=== PATIENT | male | born 1980 | race African-American/Black ===

== ENCOUNTER 2018-03-22 16:03 | Emergency (ER) | payer OTHER ==
[~2018-03-22] VITALS: Ht 172.7 cm; Wt 83.9 kg
[2018-03-22 16:27] VITALS: BP 138/84
--- NOTE | 2018-03-22 17:04 | PHYS DOC ---
Past Medical History Past Medical History: Other Additional Past Medical Histor: CHRONIC BACK PAIN Past Surgical History: No Surgical History Additional Information: Cigar daily. Alcohol Use: None Drug Use: Marijuana Adult General Chief Complaint Chief Complaint: BACK PAIN OR INJURY HPI HPI 37-year-old male presents to ER with complaints of lower back pain which started on Tuesday. Patient reports he went to step up on a step when he had sudden onset of lower back pain radiating into his right lower extremity. Patient denies any injury. Patient denies any fall. Patient states pain has been ongoing since and has been gradually worsening. Patient denies any incontinence of bowel or bladder, saddle anesthesia, or change in bowel pattern. Patient denies swelling in extremities. Patient states he has been taking ibuprofen and tramadol with minimal relief. Patient denies numbness or tingling. Patient reports he has been able to walk but does have increased pain. Patient denies any previous back surgery or injuries. Review of Systems Review of Systems Constitutional: Denies fever or chills [] Eyes: Denies change in visual acuity, redness, or eye pain [] HENT: Denies nasal congestion or sore throat [] Respiratory: Denies cough or shortness of breath [] Cardiovascular: No additional information not addressed in HPI [] GI: Denies abdominal pain, nausea, vomiting, bloody stools or diarrhea [] : Denies dysuria or hematuria [] Musculoskeletal: Denies back pain or joint pain [] Integument: Denies rash or skin lesions [] Neurologic: Denies headache, focal weakness or sensory changes [] Endocrine: Denies polyuria or polydipsia [] All other systems were reviewed and found to be within normal limits, except as documented in this note. Current Medications Current Medications Current Medications Medications (Trade) Dose Ordered Sig/[facility] Start Time Stop Time Status Last Admin Dose Admin Acetaminophen/ Hydrocodone Bitart (Lortab 5/325) 1 tab 1X ONCE 03/22/18 17:00 03/22/18 17:01 DC 03/22/18 17:14 1 TAB Methocarbamol (Robaxin) 750 mg 1X ONCE 03/22/18 17:00 03/22/18 17:01 DC 03/22/18 17:15 750 MG Prednisone (Prednisone) 50 mg 1X ONCE 03/22/18 17:00 03/22/18 17:01 DC 03/22/18 17:15 50 MG Allergies Allergies Allergies Coded Allergies Type Severity Reaction Last Updated Verified No Known Drug Allergies 10/28/14 No Physical Exam Physical Exam Constitutional: Well developed, well nourished, no acute distress, non-toxic appearance. [] HENT: Normocephalic, atraumatic, bilateral external ears normal, oropharynx moist, no oral exudates, nose normal. [] Eyes: PERRLA, EOMI, conjunctiva normal, no discharge. [] Neck: Normal range of motion, no tenderness, supple, no stridor. [] Cardiovascular:Heart rate regular rhythm, no murmur [] Lungs & Thorax: Bilateral breath sounds clear to auscultation [] Abdomen: Bowel sounds normal, soft, no tenderness, no masses, no pulsatile masses. [] Skin: Warm, dry, no erythema, no rash. [] Back: No tenderness, no CVA tenderness. [] Extremities: No tenderness, no cyanosis, no clubbing, ROM intact, no edema. [] Neurologic: Alert and oriented X 3, normal motor function, normal sensory function, no focal deficits noted. [] Psychologic: Affect normal, judgement normal, mood normal. [] Current Patient Data Vital Signs Vital Signs Date Time Temp Pulse Resp B/P (MAP) Pulse Ox O2 Delivery O2 Flow Rate FiO2 03/22/18 17:14 16 98 Room Air 03/22/18 16:27 98.0 91 138/84 (102) 98.0 EKG EKG [] Radiology/Procedures Radiology/Procedures [] Course & Med Decision Making Course & Med Decision Making 1800: After PO meds patient reports he has had some improvement in right lower back pain and is ambulatory in his room. Patient remains neuro and vascular intact in bilateral lower extremities. Dragon Disclaimer Dragon Disclaimer This electronic medical record was generated, in whole or in part, using a voice recognition dictation system. Departure Departure Impression: Primary Impression: Back pain Additional Impression: Sciatica Disposition: 01 HOME, SELF-CARE Condition: STABLE Referrals: NO PCP (PCP) Patient Instructions: Back Pain, Adult, Sciatica Additional Instructions: You can continue to take [id number] Tylenol and/or ibuprofen as directed on container as needed for pain. If taking the [place] prescription avoid additional Tylenol. Warm compresses or heating pad to affected area every 3-4 hours for 20-30 minutes at a time. You can try ice packs if this improves the pain also. If symptoms persist follow-up with primary care physician for reevaluation and further care. Avoid driving if taking the Robaxin and [place] prescription- no alcohol intake while on these medications. Scripts Hydrocodone/Apap 5-325 (NORCO 5-325 TABLET) 1 Each Tablet 1 TAB PO PRN Q6HRS PRN for PAIN, #8 TAB 0 Refills Prov: SARA TAN APRN 03/22/18 Methocarbamol (ROBAXIN-750) 750 Mg Tablet 1 TAB PO BID PRN for PAIN, #10 TAB 0 Refills No driving or drinking alcohol while taking Prov: SARA TAN APRN 03/22/18 Prednisone (PREDNISONE) 50 Mg Tablet 1 TAB PO DAILY, #4 TAB 0 Refills Start on 03/23/18 Prov: SARA TAN APRN 03/22/18 Problem Qualifiers SARA TAN APRN Mar 22, 2018 17:04
[2018-03-22] MEDS: HYDROcodone/APAP 5/325MG 1 TAB TABLET PO ONE (17:14)
[2018-03-22] MEDS: predniSONE 10 MG TABLET PO ONE (17:15)
[2018-03-22] MEDS: METHOCARBAMOL 750 MG TABLET PO ONE (17:15)
[2018-03-22] MEDS ORDERED: PRED50TA PO (18:11)
[2018-03-22] MEDS ORDERED: METH-38 PO (18:12)
[2018-03-22] MEDS ORDERED: HYDR-3164 PO (18:12)
== END 2018-03-22 18:20 | disposition home or self-care (01) ==
LOC: ER 16:03
DX: M54.41 Lumbago with sciatica, right side (principal); G89.29 Other chronic pain; F17.210 Nicotine dependence, cigarettes, uncomplicated
CPT/HCPCS: 99284; J7512